=== PATIENT | female | born 1980 | race Two or more races ===

== ENCOUNTER 2021-10-19 23:23 | Emergency (ER) | payer BC, MEDICAID ==
[~2021-10-19] VITALS: Ht 162.6 cm; Wt 60.2 kg
[2021-10-20 01:28] LABS: Basophils # (auto) 0 10 ^3/uL (0-0.2); Basophils % (auto) 0.1 % (0.0-2.0); Eosinophils # (auto) 0.1 10 ^3/uL (0-0.8); Hemoglobin 11.9 g/dL (12.2-16.2); Mean Corpuscular Volume 73.2 fL (80.0-100.0)
[2021-10-20 01:29] LABS: Eosinophils % (auto) 0.5 % (0.0-7.0); Hematocrit 37.7 % (36.0-46.0); Lymphocytes # (auto) 1.1 10 ^3/uL (0.4-5.4); Lymphocytes % (auto) 5.9 % (10.0-50.0); Mean Corpuscular Hemoglobin 23.1 pg (28.0-32.0); Mean Corpuscular Hgb Conc. 31.6 g/dL (32.0-36.0); Monocytes # (auto) 1.1 10 ^3/uL (0-1.3); Monocytes % (auto) 6.3 % (0.0-12.0); Neutrophils # (auto) 15.7 10 ^3/uL (1.6-8.6); Neutrophils % (auto) 87.2 % (37.0-80.0); Red Blood Cells 5.16 10^6/uL (4.0-5.20)
[2021-10-20 01:30] LABS: Red Cell Distribution Width 20.2 % (11.8-14.3)
[2021-10-20 01:32] LABS: Urine Bacteria NONE SEEN /hpf (None Seen); Urine Blood 1+ /uL (Negative); Urine Mucus FEW (None Seen); Urine Specific Gravity 1.036 (1.001-1.035); Urine WBC 2 /hpf (0 - 5)
[2021-10-20 01:46] LABS: Calcium 8.8 mg/dL (8.5-10.1); Potassium 3.8 mmol/L (3.5-5.1)
[2021-10-20 01:48] LABS: BUN/Creatinine Ratio 15.8
[2021-10-20 01:51] LABS: Bilirubin, Total 0.2 mg/dL (0.2-1.0); Total Protein 8.4 g/dL (6.4-8.2)
[2021-10-20] MEDS ORDERED: PIPERACILLIN-TAZOB 3.375GM 100 ML IV ONE (03:15)
[2021-10-20] MEDS ORDERED: fentaNYL CITRATE 100 MCG/2 ML VL IV ONE (05:00)
[2021-10-20] MEDS ORDERED: ONDANSETRON HCL 4 MG/2 ML VIAL IV ONE (05:00)
[2021-10-20] MEDS ORDERED: SODIUM CHLORIDE 0.9% 1,000 ML IV ONE (07:15)
[2021-10-20 10:00] VITALS: BP 100/62
== END 2021-10-20 09:52 | disposition home or self-care (01) ==
LOC: ER 23:23
DX: K52.9 Noninfective gastroenteritis and colitis, unspecified (principal); D72.829 Elevated white blood cell count, unspecified
CPT/HCPCS: 36415; 74176; 76830; 76856; 80053; 81001; 83605; 83690; 84702; 85025; 87040; 96361; 96365; 96366; 96375; 99285; J2405; J2543; J3010; J7030